=== PATIENT | female | born 1980 | race Caucasian/White ===

== ENCOUNTER 2017-12-24 07:10 | Inpatient (IN) | payer OTHER, SELFPAY ==
[~2017-12-24] VITALS: Ht 157.5 cm; Wt 122.5 kg
[~2017-12-24 07:10] MED LIST: ADVAIR 100-501 EACH; ADVAIR 500-501 EACH INH; ADVAIR HFA 230M12 GM INH; ALBUTEROL2.5 MG/31; BENTYL 20 MG TA20 M1 PO; CIPROFLOXACIN500 M1 PO; FLAGYL500 MG PO; MEDROLDOSEPACK PO; NORCO 5-325 TA1 EAC1 PO; ORTHO TRI-CYCL1 EACH PO; PREDNISONE 10 M10 M1 PO; PREDNISONE 20 M20 M1 PO; PROAIR HFA8.5 GM IH; PROVENTIL HFA6.7 G1 INH; TRAMADOL 50 MG50 MG PO; XOPENEX HF1 UDINHALE IH; XOPENEX0.63 MG/3 IH; ZOFRAN ODT4 MG PO; ZPAK PO
[2017-12-24 07:13] VITALS: BP 146/85
[2017-12-24] MEDS ORDERED: BIRTH CONTROL PO (07:16)
[2017-12-24 08:03] LABS: HEMATOCRIT 36.9 % (37.0-47.0); HEMOGLOBIN 11.9 gm/dL (12.0-15.0); MCH 24.7 pg (26.0-34.0); MCHC 32.3 g/dL (28.0-37.0); MCV 76.5 fL (80.0-100.0); NUCLEATED RBCS 0 /100WBC; PLATELET COUNT* 334 thou/uL (150-400); RBC 4.82 mil/uL (4.20-5.00); RDW-CV 15.2 % (10.5-14.5); WBC 18.4 thou/uL (4.0-11.0)
[2017-12-24 08:14] LABS: CALCIUM 8.5 mg/dL (8.5-10.1); CREATININE 0.8 mg/dL (0.6-1.3)
[2017-12-24 08:19] LABS: ALBUMIN 3.2 g/dL (3.4-5.0); TOTAL BILIRUBIN 0.4 mg/dL (<0.1-1.0)
[2017-12-24 08:24] LABS: ABSOLUTE MONOCYTES 1.7 thou/uL (0.0-1.2)
[2017-12-24 08:25] LABS: PLATELET ESTIMATE INCREASED
[2017-12-24 08:28] LABS: ABSOLUTE LYMPHOCYTES 2.2 thou/uL (0.8-5.3); ABSOLUTE NEUTROPHILS 14.5 thou/uL (1.6-8.1)
[2017-12-24 08:56] LABS: URINE BILIRUBIN NEGATIVE (Negative); URINE BLOOD NEGATIVE (Negative); URINE CLARITY CLEAR; URINE COLOR YELLOW; URINE GLUCOSE-RANDOM NEGATIVE (Negative); URINE KETONES NEGATIVE (Negative); URINE LEUKOCYTES-REFLEX NEGATIVE (Negative); URINE NITRITE-REFLEX NEGATIVE (Negative); URINE PROTEIN NEGATIVE (Negative); URINE UROBILINOGEN 0.2 E.U./dl (0.2-1.0)
[2017-12-24 09:04] LABS: AMP/METHAMP Negative (Negative); BARBITURATES Negative (Negative); BENZODIAZEPINES Negative (Negative); COCAINE Negative (Negative); METHADONE Negative (Negative); OPIATES Negative (Negative); PCP Negative (Negative); THC Negative (Negative)
[2017-12-24 10:56] VITALS: BP 122/65
[2017-12-24 11:30] VITALS: BP 125/67
[2017-12-24 20:00] VITALS: BP 116/58
[2017-12-25 04:47] LABS: ABSOLUTE EOSINOPHILS 0.1 thou/uL (0.0-0.7); ABSOLUTE LYMPHOCYTES 2.1 thou/uL (0.8-5.3); ABSOLUTE NEUTROPHILS 7.8 thou/uL (1.6-8.1); BASOPHILS 0.2 %; EOSINOPHILS 0.6 %; HEMATOCRIT 31.2 % (37.0-47.0); HEMOGLOBIN 10.2 gm/dL (12.0-15.0); LYMPHOCYTES 19.2 %; MCH 25.4 pg (26.0-34.0); MCHC 32.7 g/dL (28.0-37.0); MCV 77.6 fL (80.0-100.0); MONOCYTES 8.9 %; NUCLEATED RBCS 0 /100WBC; PLATELET COUNT* 266 thou/uL (150-400); POLYS 71.1 %; RBC 4.02 mil/uL (4.20-5.00); RDW-CV 15.2 % (10.5-14.5)
[2017-12-25 05:09] LABS: CALCIUM 8.1 mg/dL (8.5-10.1); CREATININE 0.9 mg/dL (0.6-1.3); POTASSIUM 4.5 mmol/L (3.5-5.1)
[2017-12-25 08:51] VITALS: BP 120/63
[2017-12-25 16:00] VITALS: BP 118/60
[2017-12-25 20:00] VITALS: BP 107/46
[2017-12-26 06:30] LABS: ABSOLUTE EOSINOPHILS 0.2 thou/uL (0.0-0.7); ABSOLUTE LYMPHOCYTES 1.9 thou/uL (0.8-5.3); ABSOLUTE MONOCYTES 0.6 thou/uL (0.0-1.2); ABSOLUTE NEUTROPHILS 4.3 thou/uL (1.6-8.1); BASOPHILS 0.3 %; EOSINOPHILS 2.8 %; HEMATOCRIT 28.8 % (37.0-47.0); HEMOGLOBIN 9.5 gm/dL (12.0-15.0); LYMPHOCYTES 27.7 %; MCH 25.5 pg (26.0-34.0); MCHC 33.1 g/dL (28.0-37.0); MCV 76.9 fL (80.0-100.0); MONOCYTES 8.2 %; MPV 7.9 fl. (7.2-11.1); NUCLEATED RBCS 0 /100WBC; PLATELET COUNT* 271 thou/uL (150-400); RBC 3.75 mil/uL (4.20-5.00); RDW-CV 15.8 % (10.5-14.5)
[2017-12-26 06:38] LABS: ALBUMIN 2.5 g/dL (3.4-5.0); CALCIUM 7.8 mg/dL (8.5-10.1); CREATININE 0.8 mg/dL (0.6-1.3); MAGNESIUM 2.3 mg/dL (1.8-2.4); PHOSPHORUS* 3.5 mg/dL (2.5-4.9); POTASSIUM 3.5 mmol/L (3.5-5.1); TOTAL BILIRUBIN 0.1 mg/dL (<0.1-1.0); TOTAL PROTEIN 6.7 g/dL (6.4-8.2)
[2017-12-26 08:00] VITALS: BP 115/43
[2017-12-26 20:15] VITALS: BP 105/48
[2017-12-27 00:12] VITALS: BP 108/55
[2017-12-27 04:12] VITALS: BP 120/63
[2017-12-27 04:31] LABS: HEMATOCRIT 29.1 % (37.0-47.0); HEMOGLOBIN 9.5 gm/dL (12.0-15.0); MCH 25.1 pg (26.0-34.0); MCHC 32.7 g/dL (28.0-37.0); MCV 76.9 fL (80.0-100.0); MPV 7.8 fl. (7.2-11.1); RBC 3.78 mil/uL (4.20-5.00); RDW-CV 15.5 % (10.5-14.5); WBC 5.6 thou/uL (4.0-11.0)
[2017-12-27 04:51] LABS: CALCIUM 8.2 mg/dL (8.5-10.1); CREATININE 0.8 mg/dL (0.6-1.3); POTASSIUM 3.6 mmol/L (3.5-5.1)
[2017-12-27 08:00] VITALS: BP 114/64
[2017-12-27 19:15] VITALS: BP 136/73
[2017-12-27 21:00] VITALS: BP 148/73
[2017-12-28 00:59] VITALS: BP 147/80
[2017-12-28 04:38] LABS: CALCIUM 8.2 mg/dL (8.5-10.1); CREATININE 0.8 mg/dL (0.6-1.3); POTASSIUM 3.8 mmol/L (3.5-5.1)
[2017-12-28 05:07] VITALS: BP 122/64
[2017-12-28 07:45] VITALS: BP 127/51
[2017-12-28] MEDS ORDERED: CIPRO500 MG PO ×2 (11:56→12:42)
[2017-12-28] MEDS ORDERED: FLAGYL500 M1 PO (11:57)
[2017-12-28] MEDS ORDERED: FLAGYL500 MG PO (12:42)
[2017-12-28 13:04] VITALS: BP 127/51
--- NOTE | 2017-12-30 16:13 | CON ---
[address] [address] CONSULTATION Name: JULIO CESAR MELARA Room: [address]#: [id number] Admission: 12/24/17 Attend Phys: Ara Bridges Discharge: 12/28/17 Date of : 82 Report #: [id number] THIS REPORT FOR: //name// CC: Annika Adrian DATE OF SERVICE: 12/24/2017 REASON FOR CONSULTATION: Diverticulitis and microperforation. HISTORY OF PRESENT ILLNESS: This is a 37-year-old female who has had her last colonoscopy done by my partner, Dr. Whelan in 2014. The patient reports that she was told that she has diverticulosis. She also admits to having problem with diverticulitis for the past 10 years and she has had recurrent symptoms and been treated multiple times for the same. She denies constipation but reports that she was constipated 3 days prior to her diverticular attack. She currently denies nausea, vomiting, chills and fever and reports that since she has received pain medication, she no longer has abdominal pain. PAST MEDICAL HISTORY: Significant for history of recurrent diverticulitis, asthma, history of appendectomy, hiatal hernia and obesity. ALLERGIES: Significant to IODINE. MEDICATIONS: Please refer to hospital MAR. SOCIAL HISTORY: The patient denies any tobacco or alcohol use. She lives at home. FAMILY HISTORY: Significant for Crohn's disease in mother. PHYSICAL EXAMINATION: VITAL SIGNS: Reveals blood pressure of 125/67, respirations 16, pulse 96 and temperature 97.8. LUNGS: Clear. CARDIOVASCULAR: Regular. ABDOMEN: Soft, tender to palpation in the left lower quadrant. Bowel sounds are positive. NEUROLOGICAL: The patient is alert and oriented x 3. There is no focal neurologic deficit. LABORATORY DATA: Labs reveal sodium of 134, potassium 4.0, BUN is 6, creatinine 0.8 and glucose is 140. Liver function tests are all within normal limit. Total bilirubin is 0.4. WBC is 18.4 with hemoglobin of 11.9 and platelet of [address] [address] CONSULTATION Name: JULIO CESAR MELARA Room: [address]#: [id number] Admission: 12/24/17 Attend Phys: Ara Bridges Discharge: 12/28/17 Date of : 82 Report #: [id number] RADIOLOGICAL DATA: CT of abdomen and pelvis was obtained, which was significant for diverticulitis involving the distal aspect of the ascending colon and proximal sigmoid colon. There is a small focus of microperforation without evidence of inflammatory mass or abscess. ASSESSMENT AND PLAN: The patient with recurrent diverticulitis, who was constipated 3 days prior to her attack. She has had a colonoscopy 2 years ago, which was significant for left-sided diverticulosis. We will go ahead and continue antibiotics and keep her n.p.o. for now. We will follow up with Sanjiv and she will need colonoscopy in 6 weeks with tattooing of the diverticular segment and possibly segmental resection of her colon. The patient is agreeable with plan. <ELECTRONICALLY SIGNED> By: Beata Gatica MD 12/30/17 1613 1620 [id number] Gatica MD /nt
== END 2017-12-28 13:37 | disposition home or self-care (01) | DRG 872 ==
LOC: M.ERS 07:10 → M.ORTHSURG 10:26 → M.TBA-ER 10:26 → M.ORTHSURG 11:17
PROVIDERS: Internal Medicine; Nurse Practitioner Family; Personal Emergency Response Attendant; Surgery; ADMIT Internal Medicine
DX: A41.9 Sepsis, unspecified organism (principal); K57.20 Diverticulitis of large intestine with perforation and abscess without bleeding; Z68.42 Body mass index [BMI] 45.0-49.9, adult; J45.909 Unspecified asthma, uncomplicated; K59.00 Constipation, unspecified; R00.0 Tachycardia, unspecified; E66.01 Morbid (severe) obesity due to excess calories; D64.9 Anemia, unspecified; Z28.21 Immunization not carried out because of patient refusal; Z90.49 Acquired absence of other specified parts of digestive tract; Z91.041 Radiographic dye allergy status; Z83.79 Family history of other diseases of the digestive system; Z79.899 Other long term (current) drug therapy

== ENCOUNTER 2019-08-30 12:55 | Emergency (ER) | payer OTHER ==
[~2019-08-30] VITALS: Ht 157.5 cm; Wt 113.4 kg
[~2019-08-30 12:55] MED LIST changes: +BIRTH CONTROL PO; +CIPRO500 MG PO; +FLAGYL500 M1 PO
[2019-08-30] MEDS ORDERED: AMOXICILLIN875 MG PO (14:47)
[2019-08-30] MEDS ORDERED: BUTALB-APAP-CA1 EACH PO (14:47)
[2019-08-30] MEDS ORDERED: IBUPROFEN 800800 MG PO (14:47)
[2019-08-30] MEDS ORDERED: NORCO 5-325 TA1 EAC1 PO (15:11)
[2019-08-30 15:36] VITALS: BP 134/87
== END 2019-08-30 15:37 | disposition home or self-care (01) ==
LOC: M.ERS 12:55
DX: R51 Headache (principal); J45.909 Unspecified asthma, uncomplicated; Z91.041 Radiographic dye allergy status; Z91.013 Allergy to seafood; Z90.49 Acquired absence of other specified parts of digestive tract

== ENCOUNTER 2021-11-24 08:06 | Emergency (ER) | payer OTHER, MEDICAID ==
[~2021-11-24] VITALS: Ht 157.5 cm; Wt 117.9 kg
[~2021-11-24 08:06] MED LIST changes: +AMOXICILLIN875 MG PO; +BUTALB-APAP-CA1 EACH PO; +IBUPROFEN 800800 MG PO
[2021-11-24] MEDS ORDERED: PNV 29-1 TABLE1 EACH PO (08:40)
[2021-11-24] MEDS ORDERED: IRON159 MG PO (08:40)
[2021-11-24 08:53] LABS: URINE BILIRUBIN NEGATIVE (Negative); URINE BLOOD 2+ (Negative); URINE CLARITY CLEAR; URINE COLOR YELLOW; URINE GLUCOSE-RANDOM NEGATIVE (Negative); URINE KETONES NEGATIVE (Negative); URINE LEUKOCYTES-REFLEX TRACE (Negative); URINE NITRITE-REFLEX NEGATIVE (Negative); URINE PROTEIN NEGATIVE (Negative)
[2021-11-24 09:17] LABS: BACTERIA-REFLEX None Seen /HPF (None Seen); SQUAMOUS >10 Many /LPF (0-3); URINE RBC 3-10 Few /HPF (0-2); URINE WBC-REFLEX 6-15 Few /HPF (0-5)
[2021-11-24 09:18] LABS: ABSOLUTE EOSINOPHILS 0.3 thou/uL (0.0-0.7); ABSOLUTE LYMPHOCYTES 1.2 thou/uL (0.8-5.3); ABSOLUTE MONOCYTES 0.6 thou/uL (0.0-1.2); ABSOLUTE NEUTROPHILS 4.7 thou/uL (1.6-8.1); BASOPHILS 0.6 %; EOSINOPHILS 3.8 %; HEMATOCRIT 34.1 % (37.0-47.0); LYMPHOCYTES 17.7 %; MCH 24.4 pg (26.0-34.0); MCHC 32.1 g/dL (28.0-37.0); MCV 75.9 fL (80.0-100.0); MONOCYTES 8.5 %; MPV 7.3 fl. (7.2-11.1); NUCLEATED RBCS 0 /100WBC; PLATELET COUNT* 431 thou/uL (150-400); POLYS 69.4 %; RBC 4.49 mil/uL (4.20-5.00); RDW-CV 16.9 % (10.5-14.5); WBC 6.7 thou/uL (4.0-11.0)
[2021-11-24 09:18] LABS: CASTS None Seen /LPF (None Seen); CRYSTALS None Seen /LPF (None Seen)
[2021-11-24 09:30] LABS: CALCIUM 8.1 mg/dL (8.5-10.1); CREATININE 0.9 mg/dL (0.6-1.3); POTASSIUM 4.3 mmol/L (3.5-5.1)
[2021-11-24 09:34] LABS: ALBUMIN 3.1 g/dL (3.4-5.0); TOTAL BILIRUBIN 0.3 mg/dL (<0.1-1.0); TOTAL PROTEIN 7.6 g/dL (6.4-8.2)
[2021-11-24] MEDS ORDERED: HYDROCODON-ACE1 EAC7 PO (10:13)
[2021-11-24] MEDS ORDERED: ZOFRAN ODT4 MG DISSOLVE (10:13)
[2021-11-24] MEDS ORDERED: AUGMENTIN 875-1 EACH PO (10:13)
[2021-11-24 10:20] VITALS: BP 145/73
== END 2021-11-24 10:21 | disposition home or self-care (01) ==
LOC: M.ERS 08:06
PROVIDERS: Emergency Medicine Emergency Medical Services
DX: K57.32 Diverticulitis of large intestine without perforation or abscess without bleeding (principal); J45.909 Unspecified asthma, uncomplicated; Z90.49 Acquired absence of other specified parts of digestive tract; Z79.899 Other long term (current) drug therapy; Z91.02 Food additives allergy status; Z91.013 Allergy to seafood